=== PATIENT | female | born 1975 | race Caucasian/White ===

== ENCOUNTER 2022-01-07 14:44 | Outpatient (REF) | payer OTHER, SELFPAY ==
[2022-01-10 10:20] LABS: Lyme Ab w Rflx to Lyme Confirm Negative (Negative)
[2022-01-12 23:58] LABS: Anaplasma phagocytophilum Negative (Negative); B. miyamotoi PCR Negative (Negative); Babesia divergens/MO-1 Negative (Negative); Babesia duncani Negative (Negative); Babesia microti Negative (Negative); Ehrlichia chaffeensis Negative (Negative); Ehrlichia ewingii/canis Negative (Negative); Ehrlichia muris eauclairensis Negative (Negative)
== END 2022-01-07 14:45 | disposition home or self-care (01) ==
LOC: LBN 14:44
PROVIDERS: PCP Nurse Practitioner Family; Visit Provider Nurse Practitioner Adult Health
DX: R21 Rash and other nonspecific skin eruption (principal); L53.8 Other specified erythematous conditions
CPT/HCPCS: 87798; 86618